=== PATIENT | male | born 1945 | race African-American/Black ===

== ENCOUNTER 2018-05-12 07:46 | Day surgery (SDC) | payer BC ==
[2018-05-11 15:38] VITALS: BMI 47.4
[2018-05-12] MEDS ORDERED: TETRACAINE/BENZOCAINE/BUTAMBEN 20 GM SPR TP ONE (08:45)
[2018-05-12] MEDS ORDERED: MIDAZOLAM HCL 2 MG/2 ML SINGLE DOSE VIAL ONE (08:53)
[2018-05-12 09:35] VITALS: TEMP 98.4
[2018-05-12 11:15] VITALS: BP 156/79; PULSE 88
--- NOTE | 2018-05-15 15:52 | PATH ---
Surgical Pathology Report Patient Name: GIBRAN WEBER [facility]. Rec. #: [id number] /Age/Gender: 1945 (Age: 72) / M Account: [id number] Location: [facility]-ENDOSCOPY Taken: 05/12/2018 Received: 05/12/2018 Reported: 05/15/2018 Physicians: Michael Laguna M.D. Specimen(s) Received A: BX DUODENUM B: BX ANTRUM C: BX MID TRANSVERSE COLON POLYP Clinical History Blood in stool Postoperative diagnosis: Erosive gastritis, colon diverticuli, colon polyp Final Diagnosis A. SECOND PORTION DUODENUM AND DUODENUM BULB, BIOPSY: DUODENUM MUCOSA WITH NO DIAGNOSTIC ABNORMALITIES. NO HISTOLOGIC EVIDENCE OF CELIAC DISEASE. B. ANTRUM, BIOPSY: GASTRIC MUCOSA WITH ACTIVE CHRONIC GASTRITIS. IMMUNOSTAIN FOR H. PYLORI IS POSITIVE. NEGATIVE FOR INTESTINAL METAPLASIA. C. MID TRANSVERSE COLON POLYP, BIOPSY: ORGANIC DEBRIDED MATERIAL, PROBABLY FOOD PARTICLES. NO COLONIC TISSUE PRESENT. Electronically Signed Sulema Doss M.D. Gross Description A. Received in formalin, labeled "biopsy second portion of duodenum and duodenal bulb" are 3 ceballos, irregular portions of soft tissue ranging from 0.3-0.4 cm. in greatest dimension. The specimens are submitted in toto in one cassette. B. Received in formalin, labeled "biopsy antrum" are 4 ceballos, irregular portions of soft tissue ranging from 0.3-0.6 cm. in greatest dimension. The specimens are submitted in toto in one cassette. C. Received in formalin labeled "polyp mid transverse colon," is a 0.2 x 0.1 x 0.1 cm aggregate of organic debris. No definite soft tissue is identified. The formalin is filtered and the filter bag and submitted in toto in one cassette. DL/05/12/201805/12/2018
== END 2018-05-12 11:04 | disposition home or self-care (01) ==
LOC: JASU-ENDO 07:46
PROVIDERS: ATTEND Internal Medicine Gastroenterology
PROC: 0DB68ZX Excision of Stomach, Via Natural or Artificial Opening Endoscopic, Diagnostic (ICD-10-PCS; 2018-05-12)
PROC: 0DBN8ZX Excision of Sigmoid Colon, Via Natural or Artificial Opening Endoscopic, Diagnostic (ICD-10-PCS; principal; 2018-05-12 08:45)
DX: K57.30 Diverticulosis of large intestine without perforation or abscess without bleeding (principal); K64.8 Other hemorrhoids; K58.8 Other irritable bowel syndrome; K29.00 Acute gastritis without bleeding
CPT/HCPCS: 82962; 88305-TC; 88342-TC

== ENCOUNTER 2020-01-17 06:00 | Day surgery (SDC) | payer BC ==
[2020-01-16 14:10] VITALS: BMI 36.6
[~2020-01-17 06:00] MED LIST: TOBRAMYCIN/DEXAMETHASONE OPHTH. OINTMENT 1 TUBE OD ONE
--- OUTSIDE RECORDS SUMMARY | 2020-01-17 06:52 | XMS ---
:1945 Author Organization [facility] Support Name Relationship Address Phone RE, RETIRED Unavailable Unavailable Unavailable RE Unavailable Unavailable Unavailable SHAMA WEBER [address] [facility] [address] [place] [address] Re-disclosure Warning The records that you are about to access may contain information from federally- assisted alcohol or drug abuse programs. If such information is present, then the following federally mandated warning applies: This information has been disclosed to you from records protected by federal confidentiality rules (42 CFR part 2). The federal rules prohibit you from making any further disclosure of this information unless further disclosure is expressly permitted by the written consent of the person to whom it pertains or as otherwise permitted by 42 CFR part 2. A general authorization for the release of medical or other information is NOT sufficient for this purpose. The Federal rules restrict any use of the information to criminally investigate or prosecute any alcohol or drug abuse patient.The records that you are about to access may contain highly sensitive health information, the redisclosure of which is protected by Article 27-F of the [facility] Public Health law. If you continue you may haveaccess to information: Regarding HIV / AIDS; Provided by facilities licensed or operated by the [facility] Office of Mental Health; or Provided by the [facility] Office for People With Developmental Disabilities. If such information is present, then the following [facility] mandated warning applies: This information has been disclosed to you from confidential records which are protected by state law. State law prohibits you from making any further disclosure of this information without the specific written consent of the person to whom it pertains, or as otherwise permitted by law. Any unauthorized further disclosure in violation of state law may result in a fine or chcf sentence or both. A general authorization for the release of medical or other information is NOT sufficient authorization for further disclosure. Insurance Providers Payer name Policy type Policy ID Covered Covered constitution party's Policy P ro / Coverage constitution party ID relationship to Plasencia Inf ormation type plasencia BLUE CROSS [id number] SP [id number] SENIOR PLAN 3 BC/BS MC 6 [id number] Self [id number] [place] 3 [place]/BS [place] Blue Cross / [id number] Self [id number] [place] Blue [place] 3 BC/BS [place] Blue Cross / [id number] Self [id number] [facility] Blue Shield 3 Results ID Date Data Source [id number] 01/13/2020 08:50:00 AM EDT [facility] Name Value Range Interpretation Description Data Sup porting Code Source(s) Document(s ) SARS [facility] coronavirus 2 RNA This lab was ordered by [facility] and reported by [facility]. Procedure
[2020-01-17] MEDS ORDERED: ACETAMINOPHEN 325 MG TABLET (FP) PO PRN ×2 (07:23→11:11)
[2020-01-17] MEDS ORDERED: TROPICAMIDE 1% OPHTH SOLN 15 ML BOTTLE OP SCH (07:30)
[2020-01-17] MEDS ORDERED: CIPROFLOXACIN HCL 0.3% OPHTH 2.5ML BOTTLE OP SCH (07:30)
[2020-01-17] MEDS ORDERED: KETOROLAC TROMETHAMINE 0.5% EYE DROP 1 DROP DROPS OP SCH (07:30)
[2020-01-17] MEDS ORDERED: PHENYLEPHRINE 2.5% OPHTH SOLN 15 ML BOTTLE OP SCH (07:30)
[2020-01-17] MEDS ORDERED: DICLOFENAC SODIUM 0.1% OPHTHALMIC 2.5ML BOTTLE ONE (08:06)
[2020-01-17] MEDS ORDERED: TROPICAMIDE 1% OPHTH SOLN 15 ML BOTTLE ONE (08:06)
[2020-01-17] MEDS ORDERED: TOBRAMYCIN/DEXAMETHASONE OPHTH. OINTMENT 1 TUBE ONE (08:33)
[2020-01-17] MEDS ORDERED: LIDOCAINE HCL/PF 1% SDV 5ML VIAL ONE (08:33)
[2020-01-17] MEDS ORDERED: EPINEPHrine/PF 1 MG/1 ML (1:1,000) AMPULE ONE (08:33)
[2020-01-17] MEDS ORDERED: TETRACAINE 0.5% OPHTH SOLN 2 ML BOTTLE ONE (08:33)
[2020-01-17] MEDS ORDERED: POVIDONE-IODINE 5% OPHTHALMIC PREP 30 ML SOLUTION ONE (08:34)
[2020-01-17] MEDS ORDERED: MIDAZOLAM HCL 2 MG/2 ML SINGLE DOSE VIAL ONE (09:15)
[2020-01-17] MEDS ORDERED: CHONDROITIN SU A/HYALUR SOD 1 KIT ONE (09:18)
--- NOTE | 2020-01-17 09:24 | HP ---
History & Physical Update - History History: No Change - Physical Physical: No Change - Assessment Assessment: No Change - Plan Plan: No Change (H an P reviewed from Dr. Fontanez 12/28/2019 no changes)
--- NOTE | 2020-01-17 09:24 | HP ---
- Patient Scheduled date of Surgery: 01/17/20 Scheduled Surgical Procedure: Phacoemulsification and cataract extraction with PCIOL Affected Eye: Right Chief Complaint (Indication for surgery): Decreased vision affecting ADLs - Ocular History Other Eye History: Other (glaucoma) Eye Medications: travatan qhs ou , vigamox 3/0 , prolensa 1/0 Previous Eye Surgery: none - Medical History Illnesses: Hypertension, Diabetes, Other (gout) Current Medications: Ambulatory Orders Docusate Sodium [Colace] 100 mg PO TID 05/11/18 Hydrochlorothiazide [Hctz -] 12.5 mg PO DAILY 05/11/18 Lactulose 10 gm PO PRN 05/11/18 Losartan Potassium [Cozaar] 100 mg PO DAILY 05/11/18 metFORMIN HCL [Metformin HCl] 500 mg PO BID 05/11/18 Mag Carb/Aluminum Hydrox/Algin [Gaviscon Liquid] 30 ml PO PRN PRN #0 oral.susp 05/12/18 Pantoprazole Sodium 40 mg PO DAILY #90 tablet. 05/12/18 Allergies/Adverse Reactions: Allergies Allergy/AdvReac Type Severity Reaction Status Date / Time No Known Allergies Allergy Unverified 01/16/20 14:11 Ocular Examination - Best Corrected Visual Acuity Distance: Right eye: 20/60 Distance: Left eye: 20/40 - External/Slit Lamp Examination Abnormalities: arcus, pingueculum - Intraocular Pressure Intraocular Pressure - Right eye: 12 Intraocular Pressure-Left eye: 12 - Lens Lens: 2-3+ NS 3+ cortical (sunflower) - Vitreous/Retina Vitreous/Retina: C:D 0.4 m/v/p wnl - Special Examination M - Right eye: +1.50-1.50 x 090 M - Left eye: +2.00- 1.00 x 080 K - Right eye: 40.8/41.16 x175 K - Left eye: 40.76/41.06 x165 AL - Right eye: 24.99 AL - Left eye: 24.90 IOL bag: +20.0 AUOOTO IOL sulcus: +19.0 MN60AC IOL AC: +17.0 MTA 4UO - Impression Impression: Cataract Right Eye (cortical) - Plan Plan: Phacoemulsification and cataract extraction - IOL Right eye Post-hospital care will be provided in office on: 01/18/20
[2020-01-17] MEDS ORDERED: TETRACAINE 0.5% OPHTH SOLN 2 ML BOTTLE OD ONE (09:37)
[2020-01-17] MEDS ORDERED: POVIDONE-IODINE 5% OPHTHALMIC PREP 30 ML SOLUTION OD ONE (09:39)
[2020-01-17] MEDS ORDERED: CHONDROITIN SU A/HYALUR SOD 1 KIT IO ONE (09:44)
[2020-01-17] MEDS ORDERED: LIDOCAINE HCL 1% PRESERVATIVE FREE - 30ML VIAL IO ONE (09:44)
[2020-01-17] MEDS ORDERED: BSS (NA/CA/MG/K) BALANCED SALT SOLUTION OPHTH SOLN 15 ML BOTTLE OD ONE (09:44)
[2020-01-17] MEDS ORDERED: EPINEPHrine/PF 1 MG/1 ML (1:1,000) AMPULE SQ ONE (09:49)
[2020-01-17] MEDS ORDERED: TOBRAMYCIN/DEXAMETHASONE OPHTH. OINTMENT 1 TUBE OD ONE (10:01)
--- NOTE | 2020-01-17 10:06 | OP ---
Ophthalmology Operative Note Pre-Operative Diagnosis: Cataract (cortical) Affected Eye: Right Operation: Phacoemulsification and cataract extraction with PCIOL Findings: cortical cataract right eye Post-Operative Diagnosis: Same as Pre-op Marine Steward: None Anesthesiologist: Diana Lazaro Anesthesia: Topical Specimens Removed: None Estimated blood loss: < 1cc Drains & Tubes with Location: none Operative Report Dictated: Yes
[2020-01-17 11:06] VITALS: BP 135/74; PULSE 82; TEMP 98
[2020-01-17] MEDS ORDERED: ONDANSETRON 4 MG/2 ML VIAL IVPUSH PRN (11:11)
[2020-01-17] MEDS ORDERED: LACTATED RINGERS SOLUTION 1,000 ML IV SCH (11:15)
--- NOTE | 2020-01-17 11:18 | OP ---
DATE OF OPERATION: DATE OF DICTATION: 01/17/2020 PREOPERATIVE DIAGNOSIS: Cortical cataract, right eye. POSTOPERATIVE DIAGNOSIS: Cortical cataract, right eye. PROCEDURE: Phacoemulsification and cataract extraction with insertion of posterior chamber intraocular lens, right eye. SURGEON: Shahida Fang MD CAN PILER: None. ANESTHESIA: Topical. ANESTHESIOLOGIST: Diana Lauren CRNA OPERATIVE PROCEDURE: The patient received Tetracaine eye drops and was gently sedated and prepped and draped in the usual sterile fashion so as to expose only the right eye. Ophthalmic Betadine was instilled into the inferior fornix and lashes were taped out of the surgical field. An eyelid speculum was placed into the right eye. Paracentesis was made in superior temporal clear cornea at the limbus. Then 0.5 mL of nonpreserved lidocaine 1% was injected into the anterior chamber and then 1 mL of dilute epinephrine 1:10,000 was injected into the anterior chamber to improve pupillary dilation. Viscoelastic material was instilled into the anterior chamber via the paracentesis. A 2.4-mm keratome blade was then used to create the main incision in temporal clear cornea at the limbus. A continuous curvilinear capsulorrhexis was performed using a cystotome and Utrata forceps. Hydrodissection of the lens cortex was performed using BSS on a cannula until the nucleus was noted to be freely rotating. The phacoemulsification tip was then inserted via the main wound and used to scope 2 perpendicular grooves into the lens nucleus. The nucleus was cracked into 4 quadrants. Each quadrant was lifted out of the capsule into the iris plane and individually phacoemulsified. The remaining cortical material was then aspirated using the irrigation/aspiration port. The capsular bag was inflated using ProVisc and a preloaded AcrySof lens model [id number] power +20.5 diopters was injected into the capsular bag. It was centered using a Sinskey hook. The residual viscoelastic material was removed from the anterior chamber using irrigation and aspiration. The wound edges were hydrated using BSS. The wound was tested for leakage and was found to be watertight. Tobradex ointment was placed in the eye, and the speculum was removed from the eye, and the eyelid was closed. A sterile dressing and shield were placed over the eye. The patient was transferred to the recovery room in stable condition, told to follow up in 1 day. SHAHIDA FANG M.D. [id number]
== END 2020-01-17 11:09 | disposition home or self-care (01) ==
LOC: JASU-SURG 06:00
PROVIDERS: ATTEND Ophthalmology
PROC: 08RJ3JZ Replacement of Right Lens with Synthetic Substitute, Percutaneous Approach (ICD-10-PCS; principal; 2020-01-17 09:30)
DX: H26.8 Other specified cataract (principal); E11.9 Type 2 diabetes mellitus without complications; Z79.84 Long term (current) use of oral hypoglycemic drugs
CPT/HCPCS: 82962

== ENCOUNTER 2020-01-24 04:28 | Day surgery (SDC) | payer BC ==
--- OUTSIDE RECORDS SUMMARY | 2020-01-18 12:46 | XMS ---
:1945 Author Organization [facility] Support Name Relationship Address Phone RE, RETIRED Unavailable Unavailable Unavailable RE Unavailable Unavailable Unavailable SHAMA WEBER [address] [place] [address] Re-disclosure Warning The records that you are [...] is protected by Article 27-F of the [facility] Public Health law. If you continue you may haveaccess to information: Regarding HIV / AIDS; Provided by facilities licensed or operated by the [facility] Office of Mental Health; or Provided by the [facility] Office for People With Developmental Disabilities. If such information is present, then the following [facility] mandated warning applies: This information has been [...] law may result in a fine or long term sentence or both. A general authorization for the release of medical or other information is NOT sufficient authorization for further disclosure. Insurance Providers Payer name Policy type Policy ID Covered Covered democrat's Policy P ro / Coverage democrat ID relationship to Plasencia Inf ormation type plasencia BLUE CROSS [id number] SP [id number] SENIOR PLAN 3 BC/BS MC 6 [id number] Self [id number] [place] 3 BC/BS [place] Blue Cross / [id number] Self [id number] [place] 3 [place]/BS [place] Blue Cross / [id number] Self [id number] [facility] Blue Shield 3 Results ID Date Data Source [id number] 01/13/2020 08:50:00 AM EDT [facility] Name Value Range Interpretation Description Data Sup porting Code Source(s) Document(s ) SARS [facility] coronavirus 2 RNA This lab was ordered by [facility] and reported by [facility]. Procedure
[2020-01-23 16:24] VITALS: BMI 36.6
[~2020-01-24 04:28] MED LIST changes: -TOBRAMYCIN/DEXAMETHASONE OPHTH. OINTMENT 1 TUBE OD ONE; +TOBRAMYCIN/DEXAMETHASONE OPHTH. OINTMENT 1 TUBE TP ONE
--- OUTSIDE RECORDS SUMMARY | 2020-01-24 04:32 | XMS ---
:1945 Author Organization [facility] Support Name Relationship Address Phone RE, RETIRED Unavailable Unavailable Unavailable RE Unavailable Unavailable Unavailable SHAMA WEBER [address] [phone] [place] [id number] Re-disclosure Warning The records that you are [...] is protected by Article 27-F of the [facility] Public Health law. If you continue you may haveaccess to information: Regarding HIV / AIDS; Provided by facilities licensed or operated by the [facility] Office of Mental Health; or Provided by the [facility] Office for People With Developmental Disabilities. If such information is present, then the following [facility] mandated warning applies: This information [...] Plasencia Inf ormation type plasencia BLUE CROSS [id number] SP [id number] SENIOR PLAN 3 BC/BS [place] 6 [id number] Self [id number] [place] 3 [place]/BS [place] Blue Cross / [id number] Self [id number] [place] 3 [place]/BS [place] Blue Cross / [id number] Self [id number] [place] 3 Results ID Date Data Source [id number] 01/20/2020 10:05:00 AM EDT [facility] Name Value Range Interpretation Description Data Sup porting Code Source(s) Document(s ) SARS [facility] coronavirus 2 RNA This lab was ordered by [facility] and reported by [facility]. ID Date Data Source [id number] 01/13/2020 08:50:00 AM EDT [facility] Name Value Range Interpretation Description Data Sup porting Code Source(s) Document(s ) SARS [facility] coronavirus 2 RNA This lab was ordered by [facility] and reported by [facility]. Procedure
[2020-01-24] MEDS ORDERED: TROPICAMIDE 1% OPHTH SOLN 15 ML BOTTLE ONE (08:19)
[2020-01-24] MEDS ORDERED: CIPROFLOXACIN HCL 0.3% OPHTH 2.5ML BOTTLE ONE (08:19)
[2020-01-24] MEDS ORDERED: KETOROLAC TROMETHAMINE 0.5% EYE DROP 1 DROP DROPS ONE (08:20)
[2020-01-24] MEDS: TROPICAMIDE 1% OPHTH SOLN 15 ML BOTTLE OP SCH ×3 (08:45→09:18)
[2020-01-24] MEDS: CIPROFLOXACIN HCL 0.3% OPHTH 2.5ML BOTTLE OP SCH ×3 (08:45→09:17)
[2020-01-24] MEDS: PHENYLEPHRINE 2.5% OPHTH SOLN 15 ML BOTTLE OP SCH ×3 (08:45→09:18)
[2020-01-24] MEDS: KETOROLAC TROMETHAMINE 0.5% EYE DROP 1 DROP DROPS OP SCH ×3 (08:45→09:18)
[2020-01-24] MEDS ORDERED: MIDAZOLAM HCL 2 MG/2 ML SINGLE DOSE VIAL ONE (09:18)
--- NOTE | 2020-01-24 09:46 | HP ---
- Patient Scheduled date of Surgery: 01/24/20 Scheduled Surgical Procedure: Phacoemulsification and cataract extraction with PCIOL Affected Eye: Left Chief Complaint (Indication for surgery): Decreased vision affecting ADLs - Ocular History Other Eye History: Other (glaucoma suspect, pingeucula , arcus) Eye Medications: vigamox tid Os Previous Eye Surgery: s/p ce/pciol OD - Medical History Illnesses: Hypertension, Diabetes, Other (gout) Current Medications: Ambulatory Orders Docusate Sodium [Colace] 100 mg PO TID 05/11/18 Hydrochlorothiazide [Hctz -] 12.5 mg PO DAILY 05/11/18 Lactulose 10 gm PO PRN 05/11/18 Losartan Potassium [Cozaar] 100 mg PO DAILY 05/11/18 metFORMIN HCL [Metformin HCl] 500 mg PO BID 05/11/18 Mag Carb/Aluminum Hydrox/Algin [Gaviscon Liquid] 30 ml PO PRN PRN #0 oral.susp 05/12/18 Pantoprazole Sodium 40 mg PO DAILY #90 tablet. 05/12/18 Allergies/Adverse Reactions: Allergies Allergy/AdvReac Type Severity Reaction Status Date / Time No Known Allergies Allergy Unverified 01/23/20 16:13 Ocular Examination - Best Corrected Visual Acuity Distance: Right eye: 20/20 Distance: Left eye: 20/40 - External/Slit Lamp Examination Abnormalities: arcus, pinguelua - Intraocular Pressure Intraocular Pressure (mm/Hg) - Right eye: 13 Intraocular Pressure (mm/Hg)-Left eye: 13 - Lens Lens: 2+ NS 3+ cortical change - Vitreous/Retina Vitreous/Retina: C:D 0.45, m wnl p hazy view v wnl - Special Examination M - Left eye: +2.00-1.50 x 080 K - Right eye: 40.50/41.50 x003 K - Left eye: 40.75/40.75 AL - Right eye: 24.99 AL - Left eye: 24.90 IOL bag: +20.0 AUOOTO IOL sulcus: +19.0 MN60AC IOL AC: +17.0 MTA 4uo - Impression Impression: Cataract Left Eye - Plan Plan: Phacoemulsification and cataract extraction - IOL Left eye Post-hospital care will be provided in office on: 01/25/20
--- NOTE | 2020-01-24 09:47 | HP ---
History & Physical Update - History History: No Change - Physical Physical: No Change - Assessment Assessment: No Change - Plan Plan: No Change (DR.Yunnis Cristobal and P reviewed from 12/28/2019 no changes)
[2020-01-24] MEDS ORDERED: TETRACAINE 0.5% OPHTH SOLN 2 ML BOTTLE OS ONE (10:05)
[2020-01-24] MEDS ORDERED: LIDOCAINE HCL 1% PRESERVATIVE FREE - 30ML VIAL IO ONE (10:09)
[2020-01-24] MEDS ORDERED: CHONDROITIN SU A/HYALUR SOD 1 KIT IO ONE (10:10)
[2020-01-24] MEDS ORDERED: EPINEPHrine/PF 1 MG/1 ML (1:1,000) AMPULE SQ ONE (10:15)
[2020-01-24] MEDS ORDERED: TOBRAMYCIN/DEXAMETHASONE OPHTH. OINTMENT 1 TUBE TP ONE (10:27)
--- NOTE | 2020-01-24 10:42 | OP ---
Ophthalmology Operative Note Pre-Operative Diagnosis: Cataract (cortical) Affected Eye: Left Operation: Phacoemulsification and cataract extraction with PCIOL Findings: cortical cataract left eye Post-Operative Diagnosis: Same as Pre-op Senior Contract Specialist: None Anesthesiologist: Seth Blount Anesthesia: Topical Specimens Removed: none Estimated blood loss: < 1cc Drains & Tubes with Location: none Operative Report Dictated: Yes
--- NOTE | 2020-01-24 11:19 | OP ---
DATE OF OPERATION: DATE OF DICTATION: 01/24/2020 PREOPERATIVE DIAGNOSIS: Cortical cataract, left eye. POSTOPERATIVE DIAGNOSIS: Cortical cataract, left eye. PROCEDURE: Phacoemulsification and cataract extraction with insertion of posterior chamber intraocular lens, left eye. SURGEON: Shahida Fang MD EXPANSION JOINT BUILDER: None. ANESTHESIA: Topical. ANESTHESIOLOGIST: Seth Blount CRNA OPERATIVE PROCEDURE: The patient received Tetracaine eye drops and was gently sedated and prepped and draped in the usual sterile fashion so as to expose only the left eye. Ophthalmic Betadine was instilled into the inferior fornix and lashes were taped out of the surgical field. An eyelid speculum was placed into the left eye. Paracentesis was made in inferior temporal clear cornea at the limbus. Then 0.5 mL of nonpreserved lidocaine 1% was injected into the anterior chamber and then 1 mL of dilute epinephrine 1:10,000 was injected into the anterior chamber to improve pupillary dilation. Viscoelastic material was instilled into the anterior chamber via the paracentesis. A 2.4-mm keratome blade was then used to create the main incision in temporal clear cornea at the limbus. A continuous curvilinear capsulorrhexis was performed using a cystotome and Utrata forceps. Hydrodissection of the lens cortex was performed using BSS on a cannula until the nucleus was noted to be freely rotating. The phacoemulsification tip was then inserted via the main wound and used to scope 2 perpendicular grooves into the lens nucleus. The nucleus was cracked into 4 quadrants. Each quadrant was lifted out of the capsule into the iris plane and individually phacoemulsified. The remaining cortical material was then aspirated using the irrigation/aspiration port. The capsular bag was inflated using ProVisc and a preloaded AcrySof lens model [id number] power +20.0 diopters was injected into the capsular bag. It was centered using a Sinskey hook. The residual viscoelastic material was removed from the anterior chamber using irrigation and aspiration. The wound edges were hydrated using BSS. The wound was tested for leakage and was found to be watertight. Tobradex ointment was placed in the eye, and the speculum was removed from the eye, and the eyelid was closed. A sterile dressing and shield were placed over the eye. The patient was transferred to the recovery room in stable condition, told to follow up in 1 day. Shae [id number]
[2020-01-24] MEDS ORDERED: ACETAMINOPHEN 325 MG TABLET (FP) ONE (11:28)
[2020-01-24 13:25] VITALS: TEMP 97.5
[2020-01-24 13:56] VITALS: BP 120/74; PULSE 80
[2020-01-24] MEDS ORDERED: ACETAMINOPHEN 325 MG TABLET (FP) PO PRN (13:58)
[2020-01-24] MEDS ORDERED: ONDANSETRON 4 MG/2 ML VIAL IVPUSH PRN (13:58)
[2020-01-24] MEDS ORDERED: LACTATED RINGERS SOLUTION 1,000 ML IV SCH (14:00)
== END 2020-01-24 11:40 | disposition home or self-care (01) ==
LOC: JASU-SURG 04:28
PROVIDERS: ATTEND Ophthalmology
PROC: 08RK3JZ Replacement of Left Lens with Synthetic Substitute, Percutaneous Approach (ICD-10-PCS; principal; 2020-01-24 09:30)
DX: H25.012 Cortical age-related cataract, left eye (principal); I10 Essential (primary) hypertension; E11.9 Type 2 diabetes mellitus without complications
CPT/HCPCS: 82962

== ENCOUNTER 2022-09-28 05:59 | Day surgery (SDC) | payer BC ==
[2022-09-22 16:17] VITALS: BMI 42.4
[2022-09-28] MEDS ORDERED: CELECOXIB 200 MG CAPSULE PO ONE (06:33)
[2022-09-28] MEDS ORDERED: CEFAZOLIN 2 GM in DEXTROSE 5%-WATER - 50 ML IVPB ONE (06:33)
[2022-09-28] MEDS ORDERED: TRANEXAMIC ACID 1000 MG/10 ML VIAL IVPUSH ONE (06:33)
[2022-09-28] MEDS ORDERED: PROPOFOL 40 ML ONE (07:07)
[2022-09-28] MEDS ORDERED: MIDAZOLAM HCL 2 MG/2 ML SINGLE DOSE VIAL ONE (07:08)
[2022-09-28] MEDS ORDERED: ACETAMINOPHEN INJECTION 100 ML IVPB ONE (07:17)
[2022-09-28] MEDS ORDERED: BUPIVACAINE HCL/PF 0.5% (5 MG/ML) 30 ML VIAL IJ ONE (07:17)
[2022-09-28] MEDS ORDERED: ceFAZolin SODIUM 1 GM VIAL ONE ×4 (07:28→08:17)
[2022-09-28] MEDS ORDERED: VANCOMYCIN 1,000 MG VIAL (RESTRICTED TO ID ONLY) ONE (07:28)
[2022-09-28] MEDS ORDERED: oxyCODONE HCL 5 MG TABLET PO PRN (07:47)
[2022-09-28] MEDS ORDERED: ONDANSETRON 4 MG/2 ML VIAL IVPUSH PRN (07:47)
[2022-09-28] MEDS ORDERED: MAG HYDROX/AL HYDROX/SIMETH 30 ML UNIT-DOSE CUP PO PRN (08:01)
[2022-09-28] MEDS ORDERED: DOCUSATE SODIUM 100 MG CAPSULE (FP) PO PRN (08:01)
[2022-09-28] MEDS ORDERED: TRANEXAMIC ACID 1000 MG/10 ML VIAL ONE (08:17)
[2022-09-28] MEDS ORDERED: ONDANSETRON 4 MG/2 ML VIAL ONE (09:48)
[2022-09-28] MEDS ORDERED: COLCHICINE 0.6 MG CAPSULE PO SCH (10:00)
[2022-09-28] MEDS: oxyCODONE HCL 5 MG TABLET PO PRN ×2 (11:29→20:17)
[2022-09-28] MEDS: ACETAMINOPHEN 500 MG TABLET (FP) PO SCH ×2 (15:15→20:16)
[2022-09-28] MEDS: CEFAZOLIN SODIUM 2 GM in DEXTROSE 5%-WATER 100 ML IVPB SCH (15:15)
[2022-09-28] MEDS: PANTOPRAZOLE 40 MG TABLET PO SCH (20:12)
[2022-09-28] MEDS: LACTATED RINGERS SOLUTION 1,000 ML IV SCH (20:13)
[2022-09-28] MEDS: MULTIVITAMINS (DAILY MVI) TABLET (FP) PO SCH (20:13)
[2022-09-28] MEDS: oxyCODONE HCL 10 MG SUSTAINED ACTING TABLET PO SCH (21:22)
[2022-09-29] MEDS: CEFAZOLIN SODIUM 2 GM in DEXTROSE 5%-WATER 100 ML IVPB SCH (00:16)
[2022-09-29] MEDS: ACETAMINOPHEN 500 MG TABLET (FP) PO SCH ×3 (02:36→16:07)
[2022-09-29] MEDS: oxyCODONE HCL 5 MG TABLET PO PRN ×2 (02:37→13:19)
[2022-09-29] MEDS ORDERED: COLCHICINE 0.6 MG TAB PO SCH (07:21)
[2022-09-29] MEDS ORDERED: ASPIRIN 325 MG TABLET PO SCH (08:00)
[2022-09-29 08:10] LABS: HEMATOCRIT 35.2 % (35.4-49); HEMOGLOBIN 11.5 G/dL (11.7-16.9); MCH 28.8 pg (25.7-33.7); MCHC 32.7 g/dl (32.0-35.9); MEAN PLT VOLUME 8.8 fl (7.5-11.1); PLATELET COUNT 226.9 10^3/uL (134-434); RDW 15.9 % (11.9-15.9); WHITE BLOOD COUNT 8.6 10^3/uL (4.0-10.8)
[2022-09-29] MEDS ORDERED: TAMSULOSIN HCL 0.4 MG CAP PO SCH (08:30)
[2022-09-29 08:38] VITALS: BP 144/63; PULSE 79; RESP 18; TEMP 98.2
[2022-09-29] MEDS: oxyCODONE HCL 10 MG SUSTAINED ACTING TABLET PO SCH (09:03)
[2022-09-29] MEDS: MULTIVITAMINS (DAILY MVI) TABLET (FP) PO SCH (09:04)
[2022-09-29] MEDS: PANTOPRAZOLE 40 MG TABLET PO SCH (09:04)
[2022-09-29] MEDS: LACTATED RINGERS SOLUTION 1,000 ML IV SCH (09:06)
[2022-09-29] MEDS ORDERED: HYDROCHLOROTHIAZIDE 12.5 MG CAPSULE (FP) PO SCH (10:00)
[2022-09-29] MEDS ORDERED: LOSARTAN POTASSIUM 50 MG TABLET PO SCH (10:00)
== END 2022-09-29 16:50 | disposition home health service (06) ==
LOC: FASUSAT 05:59 → FM/S 11:05 → FASUSAT 09-29 16:50
PROVIDERS: ATTEND Orthopaedic Surgery
PROC: 8E0Y0CZ Robotic Assisted Procedure of Lower Extremity, Open Approach (ICD-10-PCS; 2022-09-28)
PROC: 0SRB0J9 Replacement of Left Hip Joint with Synthetic Substitute, Cemented, Open Approach (ICD-10-PCS; principal; 2022-09-28 08:36)
DX: M16.12 Unilateral primary osteoarthritis, left hip (principal)
CPT/HCPCS: 20985; 27130; C1776; S2900; 36415; 73502-TC-LT-FY; 85027; 88305-TC; 88311-TC; 94760; 97010-GP; 97116-GP; 97162-GP